=== PATIENT | male | born 2000 | race Two or more races ===

== ENCOUNTER 2020-11-24 12:07 | Outpatient (REF) | payer MEDICAID, SELFPAY ==
[2020-11-24 14:15] LABS: MANUAL DIFF FLAG NO
[2020-11-24 14:26] LABS: Basophils Percent Auto 0.6 % (0-2); Eosinophils Absolute Auto 0.1 X10*3/uL (0.0-0.4); Hematocrit 42.5 % (42-52); Imm Gran Abs Auto 0.02 X10*3/uL (0.00-0.03); Imm Gran Pct Auto 0.3 % (0.0-0.4); Lymphocytes Absolute Auto 1.6 X10*3/uL (1.2-4.9); Lymphocytes Percent Auto 24.4 % (20-40); Mean Corpuscular HGB Conc 32.9 g/dl (31.0-36.0); Mean Corpuscular Hemoglobin 28.7 pg (27.0-33.0); Mean Corpuscular Volume 87.1 fL (80-98); Mean Platelet Volume 10.8 fL (9.4-12.4); Monocytes Absolute Auto 0.5 X10*3/uL (0.1-1.2); Monocytes Percent Auto 8.3 % (2-11); Neutrophils Absolute Auto 4.2 X10*3/uL (2.0-8.3); Neutrophils Percent Auto 64.4 % (45-73); Platelet Count 278 X10*3/uL (160-400); Red Blood Count 4.88 X10*6/uL (4.60-5.80); Red Cell Distribution Width 12.2 % (11.0-16.0); White Blood Count 6.5 X10*3/uL (4.8-10.8)
[2020-11-24 14:57] LABS: Alanine Aminotransferase 51 U/L (0-40); Albumin Level 4.4 g/dL (3.5-5.0); Alkaline Phosphatase 111 U/L (39-117); Anion Gap 12 (12-20); Aspartate Amino Transferase 30 U/L (5-37); Bilirubin Total 0.5 mg/dL (0.0-1.0); Blood Urea Nitrogen 11 mg/dL (9-16); Calcium 9.4 mg/dL (8.4-10.2); Carbon Dioxide 29 mmol/L (22-29); Chloride 104 mmol/L (96-108); Cholesterol 178 mg/dL; Estimated Glomerular Filt Rate > 60; Glucose Fasting 97 mg/dL (60-99); HDL Cholesterol 33 mg/dL; LDL Cholesterol Calculated 132 mg/dl; Potassium 4.6 mmol/L (3.3-5.1); Sodium 140 mmol/L (135-145); Total Protein 7.3 g/dL (6.5-8.0); Triglycerides 68 mg/dL
== END 2020-11-24 12:08 | disposition home or self-care (01) ==
LOC: HO.10HDL 12:07
PROVIDERS: Visit Provider Internal Medicine
DX: Z83.3 Family history of diabetes mellitus (principal); I10 Essential (primary) hypertension; R00.2 Palpitations
CPT/HCPCS: 36415; 80053; 80061; 85025

== ENCOUNTER 2021-03-17 15:12 | Outpatient (REF) | payer MEDICAID, SELFPAY ==
--- NOTE | ~2021-03-17 | XR_ITS ---
EXAMINATION: XR CHEST CLINICAL INFORMATION: Cough and wheezing. COMPARISON: None TECHNIQUE: 2 views of the chest were obtained. FINDINGS: No significant abnormality is noted involving the heart, lungs, mediastinum, bony thorax or soft tissues. XR/XR chest 2V IMPRESSION: No acute cardiopulmonary process.
== END 2021-03-17 15:13 | disposition home or self-care (01) ==
LOC: HO.XRAY 15:12
PROVIDERS: PCP Internal Medicine; Visit Provider Internal Medicine
DX: R05 Cough (principal); R06.2 Wheezing
CPT/HCPCS: 71046

== ENCOUNTER → 2023-04-14 15:39 | Outpatient (BNVA) | payer OTHER, SELFPAY | PROVIDERS: PCP Internal Medicine; Visit Provider Physician Assistant | DX: S46.911A Strain of unspecified muscle, fascia and tendon at shoulder and upper arm level, right arm, initial encounter (principal); Y04.2XXA Assault by strike against or bumped into by another person, initial encounter | CPT/HCPCS: 99204 ==

== ENCOUNTER → 2023-04-19 10:28 | Outpatient (BNVA) | payer OTHER, SELFPAY | PROVIDERS: PCP Internal Medicine; Visit Provider Physician Assistant Medical | DX: S46.911A Strain of unspecified muscle, fascia and tendon at shoulder and upper arm level, right arm, initial encounter (principal); Y04.2XXA Assault by strike against or bumped into by another person, initial encounter | CPT/HCPCS: 99213 ==

== ENCOUNTER → 2023-04-27 10:58 | Outpatient (BNVA) | payer OTHER, SELFPAY | PROVIDERS: PCP Internal Medicine; Visit Provider Physician Assistant Medical | DX: S46.911D Strain of unspecified muscle, fascia and tendon at shoulder and upper arm level, right arm, subsequent encounter (principal); Y04.2XXD Assault by strike against or bumped into by another person, subsequent encounter | CPT/HCPCS: 99213 ==

== ENCOUNTER 2023-09-09 00:04 | Inpatient (IN) | payer OTHER, SELFPAY ==
[2023-09-09] VITALS (8 sets, daily range): BP systolic 118–144; BP diastolic 70–90; PULSE 71–86; RESP 16–23; TEMP 36.5–37.2; O2SAT 95–98; BMI 33.3; BMI 33.2
--- NOTE | 2023-09-09 00:24 | ECG_ITS ---
Test Reason : OD MEDS Blood Pressure : / mmHG Vent. Rate : 068 BPM Atrial Rate : 068 BPM P-R Int : 160 ms QRS Dur : 090 ms QT Int : 402 ms P-R-T Axes : 014 062 -04 degrees QTc Int : 427 ms Normal sinus rhythm Abnormal QRS-T angle, consider primary T wave abnormality Abnormal ECG No previous ECGs available Referred By: Lyndsey Arias Electronically Signed By:Cheng Bauman
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
[2023-09-09] MEDS: Activated charcoaL 50 GM/240 ML ORAL.SUSP PO (00:43)
[2023-09-09 00:52] LABS: MANUAL DIFF FLAG NO
[2023-09-09 00:53] LABS: Basophils Absolute Auto 0.1 X10*3/uL (0.0-0.2); Basophils Percent Auto 0.6 % (0-2); Eosinophils Absolute Auto 0.2 X10*3/uL (0.0-0.4); Hematocrit 43.1 % (42.0-52.0); Hemoglobin 14.7 g/dl (14.0-18.0); Imm Gran Abs Auto 0.03 X10*3/uL (0.00-0.03); Imm Gran Pct Auto 0.2 % (0.0-0.4); Lymphocytes Percent Auto 16.7 % (20-40); Mean Corpuscular HGB Conc 34.1 g/dl (31.0-36.0); Mean Corpuscular Hemoglobin 28.6 pg (27.0-33.0); Mean Corpuscular Volume 83.9 fL (80.0-98.0); Mean Platelet Volume 10.1 fL (9.4-12.4); Monocytes Absolute Auto 0.6 X10*3/uL (0.1-1.2); Monocytes Percent Auto 4.8 % (2-11); Neutrophils Absolute Auto 9.2 x10*3/uL (2.0-8.3); Neutrophils Percent Auto 75.7 % (45-73); Platelet Count 296 X10*3/uL (160-400); Red Blood Count 5.14 X10*6/uL (4.60-5.80); Red Cell Distribution Width 12.2 % (11.0-16.0); White Blood Count 12.1 X10*3/uL (4.8-10.8)
[2023-09-09 01:08] LABS: COVID-19 Test Negative (Negative); IDNOW Serial# 6674DD1D
[2023-09-09 01:09] LABS: Alanine Aminotransferase 40 U/L (0-40); Albumin Level 4.2 g/dL (3.5-5.0); Alkaline Phosphatase 107 U/L (39-117); Anion Gap 12 (12-20); Aspartate Amino Transferase 22 U/L (5-37); Bilirubin Direct 0.1 mg/dL (0.0-0.5); Bilirubin Total 0.3 mg/dL (0.0-1.0); Blood Urea Nitrogen 14 mg/dL (9-16); Calcium 9.5 mg/dL (8.4-10.2); Carbon Dioxide 24 mmol/L (22-29); Chloride 109 mmol/L (96-108); Creatinine Clr Calc Pharmacy 135.5; Estimated Glomerular Filt Rate > 60; Ethanol < 10 mg/dL; Glucose Random 104 mg/dL (60-115); Magnesium 2.2 mg/dL (1.6-2.6); Potassium 3.9 mmol/L (3.3-5.1); Sodium 141 mmol/L (135-145); Total Protein 7.7 g/dL (6.5-8.0)
[2023-09-09 01:12] LABS: Acetaminophen LAB < 3 mcg/mL (<30); Salicylate < 5.0 mg/dL (15-30)
--- NOTE | 2023-09-09 01:21 | PC.NURSE ---
this RN spoke to poison control; recommended to monitor patient for 8hrs post ingestion, benzos as needed for post serotonin syndrome, Q2hr EKGs x3, keep mag greater than 2, and keep potassium greater than 4.0.
--- NOTE | 2023-09-09 02:30 | ECG_ITS ---
Test Reason : OD Blood Pressure : / mmHG Vent. Rate : 075 BPM Atrial Rate : 075 BPM P-R Int : 152 ms QRS Dur : 110 ms QT Int : 396 ms P-R-T Axes : 016 061 -08 degrees QTc Int : 442 ms Normal sinus rhythm Abnormal QRS-T angle, consider primary T wave abnormality Abnormal ECG When compared with ECG of 09-SEP-2023 02:33, No significant change was found Referred By: Lyndsey Arias Electronically Signed By:Cheng Bauman
--- NOTE | 2023-09-09 04:30 | ECG_ITS ---
Test Reason : OD Blood Pressure : / mmHG Vent. Rate : 076 BPM Atrial Rate : 076 BPM P-R Int : 158 ms QRS Dur : 090 ms QT Int : 386 ms P-R-T Axes : 021 052 -09 degrees QTc Int : 434 ms Normal sinus rhythm Abnormal QRS-T angle, consider primary T wave abnormality Abnormal ECG When compared with ECG of 09-SEP-2023 00:32, No significant change was found Referred By: Lyndsey Arias Electronically Signed By:Cheng Bauman
[2023-09-09 05:41] LABS: Amphetamine Screen Urine Not Detected (Not Detect); Barbiturates, Urine Not Detected (Not Detect); Benzodiazepines Screen Urine Not Detected (Not Detect); Cannabinoid Screen Urine Not Detected (Not Detect); Cocaine Screen Urine Not Detected (Not Detect); Fentanyl, urine Not Detected (Not Detect); Opiate Screen Urine Not Detected (Not Detect); Phencyclidine Screen Urine Not Detected (Not Detect)
--- NOTE | 2023-09-09 11:12 | PC.NURSE ---
Pharmacy called for med rec.
--- NOTE | 2023-09-09 12:00 | PHA.MEDREC ---
Pharmacy Consult ? Medication Reconciliation Pharmacy has completed the medication reconciliation.Patient confirmed medications. Reported that he takes Quetiapine 25mg PRN
--- NOTE | 2023-09-09 12:10 | PC.NURSE ---
report given to Chon SANTANA in pod.
[2023-09-09 12:29] LABS: Appearance Urine Clear; Color Urine Yellow; Glucose Urine UA Negative (Negative); Leukocyte Esterase Urine Negative (Negative); Nitrite Urine Negative (Negative); PH 5.5 (5.0-9.0); Urine Blood Negative (Negative); Urine Ketones Negative (Negative); Urine Protein Negative (Neg-Trace)
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
[2023-09-10 09:31] LABS: Alanine Aminotransferase 40 U/L (0-40); Albumin Level 4.3 g/dL (3.5-5.0); Alkaline Phosphatase 118 U/L (39-117); Anion Gap 12 (12-20); Aspartate Amino Transferase 21 U/L (5-37); Bilirubin Total 0.4 mg/dL (0.0-1.0); Blood Urea Nitrogen 14 mg/dL (9-16); Calcium 9.8 mg/dL (8.4-10.2); Carbon Dioxide 29 mmol/L (22-29); Chloride 104 mmol/L (96-108); Cholesterol 208 mg/dL (<200); Creatinine Clr Calc Pharmacy 138.5; Estimated Glomerular Filt Rate > 60; Glucose Fasting 97 mg/dL (60-99); HDL Cholesterol 34 mg/dL (>40); LDL Cholesterol Calculated 151 mg/dL (<100); Potassium 3.7 mmol/L (3.3-5.1); Sodium 141 mmol/L (135-145); Triglycerides 117 mg/dL (<150)
[2023-09-10 10:00] VITALS: BP 139/89; PULSE 93; RESP 16; TEMP 37.2; O2SAT 97
--- NOTE | 2023-09-10 10:22 | HO.PSYADMNOT ---
HPI Chief Complaint: Suicide attempt [facility] Medical History Depression Diagnostics Vital Signs (24Hr): Vital Signs - 24 hr 09/09/23 12:07 09/09/23 15:00 09/09/23 20:15 Temperature 97.7 F 98.0 F Pulse Rate 78 86 75 Respiratory Rate 17 16 18 Blood Pressure 128/79 130/81 128/80 Pulse Oximetry 97 98 98 Oxygen Delivery Method Room Air Room Air Room Air BMI result Body Mass Index 33.2 Labs 09/09/23 00:48 09/10/23 08:39 Labs: Laboratory Results - last 48 hr 09/09/23 09/09/23 09/09/23 00:48 05:24 05:27 WBC 12.1 H RBC 5.14 Hgb 14.7 Hct 43.1 MCV 83.9 MCH 28.6 MCHC 34.1 RDW 12.2 Plt Count 296 MPV 10.1 Immature Gran % (Auto) 0.2 Neut % (Auto) 75.7 H Lymph % (Auto) 16.7 L [place] % (Auto) 4.8 Eos % (Auto) 2.0 Baso % (Auto) 0.6 Lymph # (Auto) 2.0 [place] # (Auto) 0.6 Eos # (Auto) 0.2 Baso # (Auto) 0.1 Abs Immat Gran (auto) 0.03 Absolute Neuts (auto) 9.2 H Absolute Nucleated RBC 0.000 Nucleated RBC % (auto) 0.0 Sodium 141 Potassium 3.9 Chloride 109 H Carbon Dioxide 24 Anion Gap 12 BUN 14 Creatinine 0.87 Estim Creat Clear Calc 135.5 Estimated GFR > 60 Random Glucose 104 Fasting Glucose Calcium 9.5 Magnesium 2.2 Total Bilirubin 0.3 Direct Bilirubin 0.1 AST 22 ALT 40 Alkaline Phosphatase 107 Total Protein 7.7 Albumin 4.2 Triglycerides Cholesterol LDL Cholesterol, Calc HDL Cholesterol Urine Color Yellow Urine Appearance Clear Urine pH 5.5 Ur Specific [place] 1.020 Urine Protein Negative Urine Glucose (UA) Negative Urine Ketones Negative Urine Blood Negative Urine Nitrite Negative Ur Leukocyte Esterase Negative Salicylates < 5.0 L Urine Opiates Screen Not Detected Urine Fentanyl Screen Not Detected Acetaminophen < 3 Ur Barbiturates Screen Not Detected Ur Phencyclidine Scrn Not Detected Ur Amphetamines Screen Not Detected U Benzodiazepines Scrn Not Detected Urine Cocaine Screen Not Detected U Marijuana (THC) Screen Not Detected Ethyl Alcohol < 10 COVID-19 (CONNIE) Negative COVID-19 [employer] Com See Note 09/10/23 08:39 WBC RBC Hgb Hct MCV MCH MCHC RDW Plt Count MPV Immature Gran % (Auto) Neut % (Auto) Lymph % (Auto) [place] % (Auto) Eos % (Auto) Baso % (Auto) Lymph # (Auto) [place] # (Auto) Eos # (Auto) Baso # (Auto) Abs Immat Gran (auto) Absolute Neuts (auto) Absolute Nucleated RBC Nucleated RBC % (auto) Sodium 141 Potassium 3.7 Chloride 104 Carbon Dioxide 29 Anion Gap 12 BUN 14 Creatinine 0.85 Estim Creat Clear Calc 138.5 Estimated GFR > 60 Random Glucose Fasting Glucose 97 Calcium 9.8 Magnesium Total Bilirubin 0.4 Direct Bilirubin AST 21 ALT 40 Alkaline Phosphatase 118 H Total Protein 8.0 Albumin 4.3 Triglycerides 117 Cholesterol 208 H LDL Cholesterol, Calc 151 H HDL Cholesterol 34 L Urine Color Urine Appearance Urine pH Ur Specific [place] Urine Protein Urine Glucose (UA) Urine Ketones Urine Blood Urine Nitrite Ur Leukocyte Esterase Salicylates Urine Opiates Screen Urine Fentanyl Screen Acetaminophen Ur Barbiturates Screen Ur Phencyclidine Scrn Ur Amphetamines Screen U Benzodiazepines Scrn Urine Cocaine Screen U Marijuana (THC) Screen Ethyl Alcohol COVID-19 (CONNIE) COVID-19 [employer] Meds/Allergies Meds Home Medications Medication Instructions Recorded Confirmed Type cetirizine 10 mg capsule (Zyrtec) 10 mg PO DAILY PRN allergies 09/09/23 09/09/23 History melatonin 3 mg tablet 3 - 6 mg PO BEDTIME PRN Insomnia 09/09/23 09/09/23 History quetiapine 25 mg tablet 25 mg PO BEDTIME PRN Insomnia 09/09/23 09/09/23 History sertraline 50 mg tablet 75 mg PO DAILY 09/09/23 09/09/23 History Allergies Allergies Allergy/AdvReac Type Severity Reaction Status Date / Time No Known Allergies Allergy Unverified 09/09/23 00:23 [No Known Allergies*] Assessment & Plan Statement Statement: I have reviewed the history and physical and performed a pertinent examination on my patient. No changes have occurred unless specified. If the History and Physical was not performed prior to admission, the Hospitalist's service will be consulted for completing the admission physical. Time Spent With Patient Time: Total time managing care of this patient today ____ minutes.
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
[2023-09-10] MEDS: Sertraline HCL 100 MG TABLET PO (13:16)
--- NOTE | 2023-09-10 15:37 | PC.NURSE ---
Submitted 3 day notice, up on Tuesday09/15/23. Treatment team notified.
[2023-09-10 18:15] VITALS: BP 128/96; PULSE 75; RESP 16; TEMP 36.6; O2SAT 97
[2023-09-10] MEDS: Acetaminophen 325 MG TABLET 650 MG PO (18:54)
[2023-09-11 08:25] VITALS: BP 116/70; PULSE 73; RESP 18; TEMP 36.7; O2SAT 95
[2023-09-11] MEDS: Sertraline HCL 100 MG TABLET PO (09:00)
--- NOTE | 2023-09-11 10:12 | HO.PSYCHPN ---
Subjective Subjective Date of Service: 09/11/23 Reason For Visit: Suicide attempt Subjective Notes: Conditional Voluntary and 3 Day Healthcare Proxy: Yes Guardianship: No Medical Problems Affecting Mental Status: No Interim History: Patient was seen and reviewed in rounds. Records and plans were reviewed. He has been stable and is doing well. He denies any symptoms of depression or anxiety. No suicidal ideations or urges for self-harm. Eating and sleeping well. Zoloft was increased. He did sign a 3 day notice which expires on 09/15. No changes were made today Review of Systems Review of Systems Yes all other systems are reviewed and are negative Mental Status Exam Mental Status Exam Narrative: In today's visit he is alert, oriented and pleasant. Normal speech. Good eye contact. Appropriate and varied affect. No signs of psychosis. No suicidal ideations upon inquiry. Cognitively intact. Judgment is intact Diagnostics Vital Signs (24Hr): Vital Signs - 24 hr 09/10/23 18:15 Temperature 97.9 F Pulse Rate 75 Respiratory Rate 16 Blood Pressure 128/96 H Pulse Oximetry 97 Oxygen Delivery Method Room Air BMI result Body Mass Index 33.2 Labs 09/09/23 00:48 09/10/23 08:39 Labs: Laboratory Results - last 48 hr 09/09/23 09/10/23 05:27 08:39 Sodium 141 Potassium 3.7 Chloride 104 Carbon Dioxide 29 Anion Gap 12 BUN 14 Creatinine 0.85 Estim Creat Clear Calc 138.5 Estimated GFR > 60 Fasting Glucose 97 Calcium 9.8 Total Bilirubin 0.4 AST 21 ALT 40 Alkaline Phosphatase 118 H Total Protein 8.0 Albumin 4.3 Triglycerides 117 Cholesterol 208 H LDL Cholesterol, Calc 151 H HDL Cholesterol 34 L Urine Color Yellow Urine Appearance Clear Urine pH 5.5 Ur Specific [place] 1.020 Urine Protein Negative Urine Glucose (UA) Negative Urine Ketones Negative Urine Blood Negative Urine Nitrite Negative Ur Leukocyte Esterase Negative Medications Medications Current Medications Acetaminophen (Acetaminophen 325 Mg Tablet) 650 mg PO Q6H PRN PRN Reason: Headache/Pain Mild Scale (1-3) Last Admin: 09/10/23 18:54 Dose: 650 mg Al Hydroxide/Mg Hydroxide (Magnesium Hydrox/Alum Hydrox 30 Ml Oral.Susp) 30 ml PO Q6H PRN PRN Reason: Heartburn/Nausea Hydroxyzine HCl (Hydroxyzine Hcl 25 Mg Tablet) 25 mg PO Q6H PRN PRN Reason: Anxiety Loratadine (Loratadine 10 Mg Tablet) 10 mg PO DAILY PRN PRN Reason: allergies Magnesium Hydroxide (Milk Of Magnesia 30 Ml Oral.Susp) 30 ml PO DAILY PRN PRN Reason: Constipation Melatonin (Melatonin 3 Mg Tablet) 6 mg PO BEDTIME PRN PRN Reason: Insomnia Nicotine Polacrilex (Nicotine Polacrilex 2 Mg Gum) 4 mg BUCCAL Q2H PRN PRN Reason: Nicotine Cravings Quetiapine Fumarate (Quetiapine Fumarate 25 Mg Tablet) 25 mg PO BEDTIME PRN PRN Reason: Insomnia Sertraline HCl (Sertraline Hcl 100 Mg Tablet) 100 mg PO DAILY PHAN Last Admin: 09/11/23 09:00 Dose: 100 mg Trazodone HCl (Trazodone Hcl 50 Mg Tablet) 50 mg PO BEDTIME MRX1 PRN PRN Reason: Insomnia Allergies Allergies Allergy/AdvReac Type Severity Reaction Status Date / Time No Known Allergies Allergy Unverified 09/09/23 00:23 [No Known Allergies*] Assessment & Plan Assessment & Plan (1) Drug overdose: Qualifiers: Encounter type: initial encounter Injury intent: intentional self-harm Qualified Code(s): T50.902A - Poisoning by unspecified drugs, medicaments and biological substances, intentional self-harm, initial encounter Status: Acute Code(s): T50.901A - Poisoning by unspecified drugs, medicaments and biological substances, accidental (unintentional), initial encounter (2) Major depression with psychotic features: Status: Acute Code(s): F32.3 - Major depressive disorder, single episode, severe with psychotic features Plan Kane meets criteria for [facility] for safety and stabilization. He is here on a voluntary status. Questions about the length of stay discussed. I suggested raising the sertraline to 100 mg and he is open to that. Contacts to be made with his treaters at [facility]. 09/11: Continue current regimen and plans and plans for an early discharge next week with outpatient follow-up Reason for continued inpatient stay Substantial Risk for: med/psych decompensation Time Spent With Patient Time: Total time managing care of this patient today ____ minutes.
[2023-09-11 19:45] VITALS: BP 129/59; PULSE 83; RESP 16; TEMP 36.6; O2SAT 97
[2023-09-12 07:45] VITALS: BP 128/79; PULSE 86; RESP 16; TEMP 36.4; O2SAT 98
[2023-09-12] MEDS: Sertraline HCL 100 MG TABLET PO (08:44)
--- NOTE | 2023-09-12 15:04 | P.PNPSI_ITS ---
Subjective Subjective Date of Service: 09/12/23 Reason For Visit: Suicide attempt Subjective Notes: Conditional Voluntary and 3 Day Healthcare Proxy: Yes Guardianship: No Medical Problems Affecting Mental Status: No Interim History: Patient was seen and reviewed in rounds. Records and plans were reviewed. He is doing very well and has been quite stable, participating in the milieu, going to groups and activities. No side effects on the increased dose of Zoloft. From my view he is okay to be discharged tomorrow or soon after that. He is hoping for that also to be able to return to his job and is open to outpatient services Review of Systems Review of Systems Yes all other systems are reviewed and are negative Mental Status Exam Mental Status Exam Narrative: In today's visit he is alert, oriented and pleasant. Normal speech. Good eye contact. Appropriate and varied affect. No signs of psychosis. No suicidal ideations upon inquiry. Cognitively intact. Judgment is intact Diagnostics Vital Signs (24Hr): Vital Signs - 24 hr 09/11/23 19:45 09/12/23 07:45 Temperature 97.9 F 97.5 F Pulse Rate 83 86 Respiratory Rate 16 16 Blood Pressure 129/59 L 128/79 Pulse Oximetry 97 98 Oxygen Delivery Method Room Air Room Air BMI result Body Mass Index 33.2 Labs 09/09/23 00:48 09/10/23 08:39 Medications Medications Current Medications Acetaminophen (Acetaminophen 325 Mg Tablet) 650 mg PO Q6H PRN PRN Reason: Headache/Pain Mild Scale (1-3) Last Admin: 09/10/23 18:54 Dose: 650 mg Al Hydroxide/Mg Hydroxide (Magnesium Hydrox/Alum Hydrox 30 Ml Oral.Susp) 30 ml PO Q6H PRN PRN Reason: Heartburn/Nausea Hydroxyzine HCl (Hydroxyzine Hcl 25 Mg Tablet) 25 mg PO Q6H PRN PRN Reason: Anxiety Loratadine (Loratadine 10 Mg Tablet) 10 mg PO DAILY PRN PRN Reason: allergies Magnesium Hydroxide (Milk Of Magnesia 30 Ml Oral.Susp) 30 ml PO DAILY PRN PRN Reason: Constipation Melatonin (Melatonin 3 Mg Tablet) 6 mg PO BEDTIME PRN PRN Reason: Insomnia Nicotine Polacrilex (Nicotine Polacrilex 2 Mg Gum) 4 mg BUCCAL Q2H PRN PRN Reason: Nicotine Cravings Quetiapine Fumarate (Quetiapine Fumarate 25 Mg Tablet) 25 mg PO BEDTIME PRN PRN Reason: Insomnia Sertraline HCl (Sertraline Hcl 100 Mg Tablet) 100 mg PO DAILY PHAN Last Admin: 09/12/23 08:44 Dose: 100 mg Trazodone HCl (Trazodone Hcl 50 Mg Tablet) 50 mg PO BEDTIME MRX1 PRN PRN Reason: Insomnia Allergies Allergies Allergy/AdvReac Type Severity Reaction Status Date / Time No Known Allergies Allergy Unverified 09/09/23 00:23 [No Known Allergies*] Assessment & Plan Assessment & Plan (1) Drug overdose: Qualifiers: Encounter type: initial encounter Injury intent: intentional self-harm Qualified Code(s): T50.902A - Poisoning by unspecified drugs, medicaments and biological substances, intentional self-harm, initial encounter Status: Acute Code(s): T50.901A - Poisoning by unspecified drugs, medicaments and biological substances, accidental (unintentional), initial encounter (2) Major depression with psychotic features: Status: Acute Code(s): F32.3 - Major depressive disorder, single episode, severe with psychotic features Plan Kane meets criteria for [facility] for safety and stabilization. He is here on a voluntary status. Questions about the length of stay discussed. I suggested raising the sertraline to 100 mg and he is open to that. Contacts to be made with his treaters at [facility]. 09/11: Continue current regimen and plans and plans for an early discharge next week with outpatient follow-up 09/12: Continue current plans and regimen, possible discharge soon Reason for continued inpatient stay Substantial Risk for: other Time Spent With Patient Time: Total time managing care of this patient today ____ minutes.
[2023-09-12 21:38] VITALS: BP 120/76; PULSE 70; RESP 16; TEMP 36.6; O2SAT 98
[2023-09-13 07:35] VITALS: BP 126/78; PULSE 81; RESP 16; TEMP 36; O2SAT 99
[2023-09-13] MEDS: Sertraline HCL 100 MG TABLET PO (08:11)
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
== END 2023-09-13 15:46 | disposition home or self-care (01) | DRG 751 ==
LOC: HO.ED 12:10 → HO.PADLT16 14:04
PROVIDERS: Admitting Provider Psychiatry & Neurology Psychiatry; Emergency Provider Emergency Medicine; Visit Provider Psychiatry & Neurology Psychiatry
DX: F32.3 Major depressive disorder, single episode, severe with psychotic features (principal); T43.222A Poisoning by selective serotonin reuptake inhibitors, intentional self-harm, initial encounter; Z20.822 Contact with and (suspected) exposure to COVID-19; Z62.811 Personal history of psychological abuse in childhood; Z91.51 Personal history of suicidal behavior; Z79.899 Other long term (current) drug therapy
CPT/HCPCS: 36415; 80048; 80053; 80061; 80076; 80143; 80179; 80307; 81003; 83735; 85025; 87635; 93005; 99285; S9485

== ENCOUNTER → 2023-09-09 00:24 | Outpatient (BNV) | payer OTHER, SELFPAY | PROVIDERS: Admitting Provider Psychiatry & Neurology Psychiatry; Emergency Provider Emergency Medicine; Visit Provider Internal Medicine Cardiovascular Disease | DX: R94.31 Abnormal electrocardiogram [ECG] [EKG] (principal) | CPT/HCPCS: 93010 ==

== ENCOUNTER → 2023-09-09 13:57 | Outpatient (BNV) | payer OTHER, SELFPAY | PROVIDERS: Admitting Provider Psychiatry & Neurology Psychiatry; Emergency Provider Emergency Medicine; Visit Provider Psychiatry & Neurology Psychiatry | DX: F33.3 Major depressive disorder, recurrent, severe with psychotic symptoms (principal); T50.902A Poisoning by unspecified drugs, medicaments and biological substances, intentional self-harm, initial encounter | CPT/HCPCS: 99231; 99232 ==

== ENCOUNTER 2024-01-30 19:22 | Emergency (ER) | payer OTHER, SELFPAY ==
[2024-01-30 19:24] VITALS: BP 144/102; PULSE 81; RESP 20; TEMP 36.6; O2SAT 100; BMI 35.5
== END 2024-01-31 01:37 | disposition left against medical advice (07) ==
LOC: HO.ED 01-31 01:20
PROVIDERS: Emergency Provider Emergency Medicine
DX: R20.2 Paresthesia of skin (principal); Z04.1 Encounter for examination and observation following transport accident; Z53.21 Procedure and treatment not carried out due to patient leaving prior to being seen by health care provider
CPT/HCPCS: 99281